=== PATIENT | female | born 1990 | race Hispanic/Latino ===

== ENCOUNTER → 2022-03-19 | Outpatient (CLI) | payer OTHER ==
[~2022-03-19] MED LIST: IOHEXOL 350 MG/ML 100ML INFUS..BTL IV ONE
== END | disposition home or self-care (01) ==
LOC: RAH 08:42
PROVIDERS: ATTEND Internal Medicine Cardiovascular Disease
DX: J98.11 Atelectasis (principal); R91.8 Other nonspecific abnormal finding of lung field; I51.7 Cardiomegaly; I48.0 Paroxysmal atrial fibrillation; I37.1 Nonrheumatic pulmonary valve insufficiency; I26.99 Other pulmonary embolism without acute cor pulmonale; M47.815 Spondylosis without myelopathy or radiculopathy, thoracolumbar region
CPT/HCPCS: 71270; Q9967; 71275

== ENCOUNTER 2024-03-07 20:33 | Emergency (ER) | payer OTHER ==
[~2024-03-07] VITALS: Ht 154.9 cm; Wt 122.0 kg
[2024-03-07 21:08] LABS: BASOPHILS # (AUTO) 0.02 K/uL (0.00-0.20); BASOPHILS % (AUTO) 0.2 % (0.0-5.0); EOSINOPHILS # (AUTO) 0.28 K/uL (0.00-0.70); EOSINOPHILS % (AUTO) 2.9 % (0.0-8.0); HEMATOCRIT 38.8 % (36-48); IMMATURE GRANULOCYTE ABSOLUTE 0.04 K/uL (0-1); LYMPHOCYTES # (AUTO) 3.3 K/uL (1.0-4.8); LYMPHOCYTES % (AUTO) 33.4 % (21.0-51.0); MEAN CORPUSCULAR HEMOGLOBIN 25.3 pg (27.0-33.0); MONOCYTES # (AUTO) 0.6 K/uL (0.1-1.0); MONOCYTES % (AUTO) 6.4 % (3.0-13.0); NEUTROPHILS # (AUTO) 5.5 K/uL (1.8-7.7); NEUTROPHILS % (AUTO) 56.7 % (40.0-77.0); PLATELET COUNT (AUTO) 321 K/uL (130-400); RED BLOOD CELL COUNT(AUTO) 4.91 MIL/uL (4.00-5.50); RED CELL DISTRIBUTION WIDTH 14.6 % (11.0-15.5); WHITE BLOOD COUNT (AUTO) 9.7 K/uL (4.8-10.8)
[2024-03-07 21:15] LABS: CREATININE 0.6 mg/dL (0.5-1.0); POTASSIUM 4.1 mmol/L (3.5-5.1)
[2024-03-07 21:27] LABS: MAGNESIUM 1.9 mg/dL (1.80-2.40)
--- NOTE | 2024-03-07 21:32 | HMCIMG ---
CHEST 1VW CLINICAL HISTORY: CHEST PAIN COMPARISON: CT scan 03/19/2022 TECHNIQUE: Single view of the chest was obtained. FINDINGS: The right lung is clear. Again demonstrated is left hemithorax volume loss with mediastinal deviation right to left and underlying likely atelectasis and scarring at the left lung. The cardiac size is unremarkable. The bony structures are within normal limits. IMPRESSION: No acute cardiopulmonary process identified.
[2024-03-07 21:35] LABS: B-TYPE NATRIURETIC PEPTIDE 5 pg/mL (0-100)
[2024-03-07 22:34] LABS: APPEARANCE,URINE CLEAR (CLEAR); BILIRUBIN,URINE NEGATIVE (NEGATIVE); COLOR,URINE YELLOW (YELLOW); GLUCOSE, URINE (UA) NEGATIVE (NEGATIVE); KETONES,URINE NEGATIVE (NEGATIVE); LEUKOCYTE ESTERASE ,URINE NEGATIVE Leu/uL (NEGATIVE); NITRATE,URINE NEGATIVE (NEGATIVE); OCCULT BLOOD,URINE NEGATIVE (NEGATIVE); PH,URINE 5.5 (5.0-8.0); PROTEIN,URINE NEGATIVE (NEGATIVE); UROBILINOGEN,URINE 0.2 mg/dL (0.2-1.0)
[2024-03-07 22:37] LABS: ADD UA MICROSCOPIC NO
[2024-03-07 22:40] VITALS: BP 148/76; PULSE 83; RESP 18; TEMP 98.4; O2SAT 98
--- NOTE | 2024-03-07 23:02 | ERN ---
General Chief Complaint: Chest Pain Stated Complaint: CHEST PAIN Time Seen by MD: 20:41 Time Seen by Midlevel: 20:41 Source: patient History of Present Illness Initial Comments Patient is a 34-year-old female with a past medical history of atrial fibrillation, hypertension and a left-sided collapsed lung presenting to the emergency department with chest pain that started at 5:00 p.m. today. 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 She specifically denies any shortness of breath, nausea, vomiting, or any other symptoms at this time. Allergies: Coded Allergies: No Known Drug Allergies (Verified Allergy, 12/02/12) Past Medical History Past Medical History: A-Fib, Hypertension, Other Medical History Other: HAS ONLY RT LUNG Past Surgical History: None ROS Dictation CONSTITUTIONAL: Negative except for HPI HEAD/FACE: Negative except for HPI EENT: Negative except for HPI RESPIRATORY: Negative except for HPI GASTROINTESTINAL/ABDOMINAL: Negative except for HPI GENITOURINARY: Negative except for HPI MUSCULOSKELETAL: Negative except for HPI INTEGUMENTARY: Negative except for HPI NEUROLOGICAL/PSYCH: Negative except for HPI HEMATOLOGIC/LYMPHATIC: Negative except for HPI All Systems Negative, Except as noted above. 13 point review of systems assessed and all negative except for above. Physical Exam Physical Exam Dictation Vital Signs reviewed General Appearance: Alert, oriented x 3, no acute distress, well developed, nourished. Head and Face: non-traumatic. Eyes: PERRL, pink conjunctivas, eyelid no trauma, anterior chamber with arcus senilis. Ears: Pinnas intact and no signs of trauma or erythema ear canals clear and no discharge TM no erythema Nose: No discharge, no bleeding. Oropharynx: Mouth normal, tongue pink, pharynx clear,no erythema, tonsils no exudates, no abscesses noted, mucous membrane moist Neck: Supple, non-tender, no thyromegaly, no masses, no JVD, no bruits Breast:Deferred Chest:No tenderness, no crepitus, no paradoxical movement, no retractions Lungs:Clear, well-ventilated, symmetric, no rales, no wheezing, no rhonchi, no stridor, good breath sounds bilaterally Heart: Regular rate, regular rhythm, no murmur, no gallops Vascular: no peripheral edema, Abdomen: Soft, positive bowel sounds, nondistended, no guarding, nontender, no rebound, no masses no hepatomegaly, no splenomegaly, no Carrasco's sign, no hernias. Rectal: Deferred Genital: Deferred Neurological: Normal speech, motor function intact, sensory function intact Musculoskeletal: Neck nontender, full range of motion, back nontender, full range of motion, Extremities: nontender, full range of motion Skin: Color pink, dry, no turgor, no rash, no lacerations, no abrasions, no contusions. Lymphatic: Deferred Results Laboratory and Microbiology Lab and Micro Result Laboratory Tests Test 03/07/24 20:57 03/07/24 22:19 White Blood Count 9.7 K/uL (4.8-10.8) Red Blood Count 4.91 MIL/uL (4.00-5.50) Hemoglobin 12.4 g/dL (12.0-16.0) Hematocrit 38.8 % (36-48) Mean Corpuscular Volume 79.0 fL (79-99) Mean Corpuscular Hemoglobin 25.3 pg (27.0-33.0) L Mean Corpuscular Hemoglobin Concent 32.0 g/dL (32.0-36.0) Red Cell Distribution Width 14.6 % (11.0-15.5) Platelet Count 321 K/uL (130-400) Mean Platelet Volume 10.4 fL (7.5-10.5) Immature Granulocyte % (Auto) 0.4 % (0-1) Neutrophils (%) (Auto) 56.7 % (40.0-77.0) Lymphocytes (%) (Auto) 33.4 % (21.0-51.0) Monocytes (%) (Auto) 6.4 % (3.0-13.0) Eosinophils (%) (Auto) 2.9 % (0.0-8.0) Basophils (%) (Auto) 0.2 % (0.0-5.0) Neutrophils # (Auto) 5.5 K/uL (1.8-7.7) Lymphocytes # (Auto) 3.3 K/uL (1.0-4.8) Monocytes # (Auto) 0.6 K/uL (0.1-1.0) Eosinophils # (Auto) 0.28 K/uL (0.00-0.70) Basophils # (Auto) 0.02 K/uL (0.00-0.20) Absolute Immature Granulocyte (auto 0.04 K/uL (0-1) Nucleated Red Blood Cells 0.0 % (0.0-0.19) Sodium Level 141 mmol/L (136-145) Potassium Level 4.1 mmol/L (3.5-5.1) Chloride Level 105 mmol/L (101-111) Carbon Dioxide Level 27 mmol/L (21-32) Blood Urea Nitrogen 10 mg/dL (7-18) Creatinine 0.6 mg/dL (0.5-1.0) Glomerular Filtration Rate Calc 121 mL/min (>90) Random Glucose 104 mg/dL (70-105) Total Calcium 9.3 mg/dL (8.5-10.1) Magnesium Level 1.90 mg/dL (1.80-2.40) Total Creatine Kinase 101 U/L (21-232) Troponin I High Sensitivity 7 ng/L (4-50) B-Type Natriuretic Peptide 5 pg/mL (0-100) Serum Test, Qualitative NEGATIVE (NEGATIVE) Urine Color YELLOW (YELLOW) Urine Appearance CLEAR (CLEAR) Urine pH 5.5 (5.0-8.0) Urine Specific [place] 1.033 (1.001-1.031) Urine Protein NEGATIVE mg/dL (NEGATIVE) Urine Glucose (UA) NEGATIVE mg/dL (NEGATIVE) Urine Ketones NEGATIVE mg/dL (NEGATIVE) Urine Occult Blood NEGATIVE (NEGATIVE) Urine Nitrate NEGATIVE (NEGATIVE) Urine Bilirubin NEGATIVE mg/dL (NEGATIVE) Urine Urobilinogen 0.2 mg/dL (0.2-1.0) Urine Leukocyte Esterase NEGATIVE Micheline/uL Labs Reviewed?: Yes MDM MDM: Patient is a 34-year-old female with a past medical history of atrial fibrillation, hypertension and a left-sided collapsed lung presenting to the emergency department with chest pain that started at 5:00 p.m. today. 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 She specifically denies any shortness of breath, nausea, vomiting, or any other symptoms at this time. On physical examination patient is in no acute respiratory distress. Initial vital signs are stable. Breath sounds are decreased in the left lung however patient states she has a history of a collapsed lung and has lived like this her entire life. She states she only has her right lung. Full cardiac workup was initiated. Her CBC shows no leukocytosis. Her chemistries unremarkable. Her cardiac enzymes are negative. BNP is normal. Her chest x-ray does show atelectasis with tracheal deviation to the left side which is unchanged from previous x-ray. Lab and imaging were discussed with the patient. She was informed of her negative cardiac enzymes and she states that since everything is normal she would like to be discharged home. I did offer admission for observation and management patient refused. She was an appointment with her hollock maker tomorrow where they are going to place a Holter monitor. Patient was advised to keep appointment with Cardiology and return to the ER if she develops any new or worsening symptoms Differential diagnosis: ACS, pneumonia, pneumothorax There are no social concerns with this patient. Prescription drug management Prescriptions will include: None Medical management and examination interpretation discussions were had by me with other qualified healthcare professionals as indicated for the patient's care. ED Course Orders Procedure Category Date Status Time 12 Lead Ekg Tracing- EKG 03/07/24 Logged Technical 20:41 B-Type Natriuretic LAB 03/07/24 Complete Peptide 20:41 Basic Metabolic Panel LAB 03/07/24 Complete 20:41 Cbc With Differential LAB 03/07/24 Complete 20:41 Creatine Kinase, Total LAB 03/07/24 Complete 20:41 Magnesium LAB 03/07/24 Complete 20:41 Testing, LAB 03/07/24 Complete Serum Hcg 20:41 Urinalysis Profile LAB 03/07/24 Complete 20:41 Troponin I High LAB 03/07/24 Complete Sensitivity 20:41 Chest 1vw RAD 03/07/24 Resulted 20:41 Vital Signs Date Time Temp Pulse Resp B/P (MAP) Pulse Ox O2 Delivery O2 Flow Rate FiO2 03/07/24 22:40 98.4 83 18 148/76 98 Room Air* 0 21 03/07/24 20:38 98.6 82 20 184/99 97 Room Air [place] [address] [address] IMAGING REPORT Signed PATIENT: SOPHIA JEAN MR#: [id number] : 1990 SEX: F AGE: 34 LOCATION: EDH ORDER 42 STATUS: REG ER REPORT#: [id number] SERVICE 40 REASON: CHEST PAIN ORDERING PHYSICIAN: BASIA VALENZUELA PROCEDURE: CXR1VW - CHEST 1VW CHEST 1VW CLINICAL HISTORY: CHEST PAIN COMPARISON: CT scan 03/19/2022 TECHNIQUE: Single view of the chest was obtained. FINDINGS: The right lung is clear. Again demonstrated is left hemithorax volume loss with mediastinal deviation right to left and underlying likely atelectasis and scarring at the left lung. The cardiac size is unremarkable. The bony structures are within normal limits. IMPRESSION: No acute cardiopulmonary process identified. DICTATED BY: CAMILLE SALGUERO DO DATE: 03/07/242123 ELECTRONICALLY SIGNED BY: CAMILLE SALGUERO DO DATE: 03/07/242131 HEART Score Response (Comments) Value History: Low suspicion (0) 0 EKG: Normal 0 Age: < 45yrs (0) 0 Risk Factors: 1-2 risk factors (+1) 1 Initial Troponin: Normal limit (0) 0 HEART Score Risk: Low Risk for MACE (1-3) Total 1 DX & DISP Disposition: Discharge Departure Impression: Primary Impression: Non-cardiac chest pain Condition: Stable Additional Instructions: Your blood work today is unremarkable. Your cardiac enzymes are negative. Your EKG does not show any evidence of a heart attack. Your chest x-ray is stable. Please follow up with your hollock maker tomorrow as scheduled. Return to the ER for any new or worsening symptoms Referrals: NANDO ASHBY MD (PCP) Time of Disposition: 23:01 I have reviewed the case, and I agree with, Diagnosis and Plan I performed the substantive portion of the visit. I have reviewed and personally made and approve the management plan that is documented in the note by myself or the MAR. I acknowledge for responsibility for the patient's management plan. BASIA VALENZUELA Mar 07, 2024 23:02
--- NOTE | 2024-03-08 06:09 | EKG ---
[facility] Test Date: 2024-03-07 Test Time: 20:45:10 Pat Name: SOPHIA JEAN Department: [facility] Room: Gender: F Email Administrator: [id number] : 1990 Requested By: BASIA VALENZUELA Order Number: [id number] Reading MD: Michaela Mckeon Measurements Intervals [place] Rate: 79 P: 49 HI: 172 QRS: 29 QRSD: 104 T: 21 QT: 387 QTc: 444 Interpretive Statements Sinus rhythm No previous ECG available for comparison Electronically Signed On 03-08-2024 10:17:38 [employer] by Michaela Mckeon Please click the below link to view image of tracing.
== END 2024-03-07 23:08 | disposition home or self-care (01) ==
LOC: EDH 20:33
DX: R07.89 Other chest pain (principal); I48.91 Unspecified atrial fibrillation; I10 Essential (primary) hypertension
CPT/HCPCS: 36415; 71045; 80048; 81003; 82550; 83735; 83880; 84484; 84703; 85025; 93005; 99285

== ENCOUNTER 2024-11-25 12:44 | Emergency (ER) | payer BC, OTHER ==
[~2024-11-25] VITALS: Ht 152.4 cm; Wt 110.2 kg
[2024-11-25 12:47] VITALS: TEMP 98.2
[2024-11-25 13:34] LABS: IMMATURE GRANULOCYTE ABSOLUTE 0.02 K/uL (0-1); NUCLEATED RED BLOOD CELLS 0.0 % (0.0-0.19); PLATELET COUNT (AUTO) 360 K/uL (130-400); RED BLOOD CELL COUNT(AUTO) 4.74 MIL/uL (4.00-5.50); RED CELL DISTRIBUTION WIDTH 14.6 % (11.0-15.5); WHITE BLOOD COUNT (AUTO) 8.7 K/uL (4.8-10.8)
[2024-11-25 13:47] LABS: CREATININE 0.9 mg/dL (0.5-1.0); GLOMERULAR FILTR. RATE CALC 86.0 mL/min (>90); GLUCOSE,RANDOM 100.0 mg/dL (70-105); SODIUM SERUM 140.0 mmol/L (136-145); UREA NITROGEN, BLOOD 6.0 mg/dL (7-18)
--- NOTE | 2024-11-25 14:31 | NUR ---
PENDING TEST RESULTS FOR CT EXAM
--- NOTE | 2024-11-25 14:32 | HMCIMG ---
EXAM: CR Chest, 2 View. CLINICAL HISTORY: sob COMPARISON: None provided. FINDINGS: Slight interval improvement in aeration of the left upper lung compared with the prior exam. Marked opacity involving the majority of the left lung. Mild right to left shift of midline structures/partial loss of the left lung volume. The right lung remains clear. MEDIASTINUM: Cardiac size and mediastinal contours within normal limits. BONES: No acute osseous abnormality. IMPRESSION: 1. Marked opacity involving majority of left lung with mild right to left shift of midline structures. 2. Slight interval improvement in aeration of left upper lung compared to prior exam. 3. Clear right lung. /[place]
--- NOTE | 2024-11-25 16:02 | HMCIMG ---
EXAM: CT Chest Without IV contrast. CLINICAL HISTORY: back pain TECHNIQUE: Axial computed tomography images of the chest without intravenous contrast. COMPARISON: None provided. FINDINGS: LUNGS: Reticular opacities and airspace opacities as well as bronchiectasis throughout the left upper and left lower lung. Marked loss of the left lung volume. The right lung is clear Mild to moderate left and left lower lung honeycombing. Leftward shift of midline structures PLEURAL SPACES: No evidence of pneumothorax. No pleural effusion. HEART: No cardiomegaly. No significant pericardial effusion. LYMPH NODES: No lymphadenopathy is evident. UPPER ABDOMEN: The upper abdominal solid organs are unremarkable. BONES: No acute osseous abnormality. IMPRESSION: 1. Left lung fibrosis with volume loss and honeycombing, consistent with end-stage interstitial lung disease. 2. Leftward mediastinal shift. 3. No acute pulmonary findings. /[place]
[2024-11-25 16:20] VITALS: BP 138/75; PULSE 87; RESP 20; O2SAT 97
--- NOTE | 2024-11-25 16:33 | ERN ---
ED Note History of Present Illness Stated Complaint: BACK PAIN Chief Complaint: Back Injury Time Seen by MD: 12:48 Time Seen by Midlevel: 12:50 Dictation: 34-year-old female coming in with complaints of right back pain. Patient states she has a history of left lung disease and was concerned since she only has a right lung functioning. Patient also states she does has a history of herniated disc. Patient states she just came to make sure it was not related to her lung. Patient denies having any fever, nausea vomiting, chest pain or chest discomfort. Denies any trauma. Allergies: Coded Allergies: No Known Drug Allergies (Verified Allergy, 12/02/12) Past Medical History Past Medical History: A-Fib, Hypertension, Other Additional Past Medical Hx: HAS ONLY RT LUNG Surgical History: None Review of System Dictation Constitutional: Negative for fever,chills, and weight loss Eyes: Negative for injury, pain,redness, and discharge ENT: Negative for injury,pain or swelling Cardiovascular: Negative for chest pain, palpitations, and edema Respiratory: Negative for shortness of breath, cough, and wheezing, Abdomen/GI: Negative for abdominal pain, nausea, vomiting, diarrhea, and constipation Back: Negative for injury and pain : Negative for injury, bleeding and discharge MS/Extremity: Negative for injury and deformity, right upper back pain Skin: Negative for rash, and discoloration Neuro: Negative for headache, weakness, numbness, tingling, and seizure Psych: Negative for suicide ideation, homicidal ideation, and hallucinations Review of Systems: was completed Initial Vital Sign VS Vital Signs Date Time Temp Pulse Resp B/P (MAP) Pulse Ox O2 Delivery O2 Flow Rate FiO2 11/25/24 12:47 98.2 93 18 170/87 97 11/25/24 13:37 Room Air* 0 21 Physical Exam Dictation General: awake, alert, NAD Head/Face: Normocephalic, atraumatic Eyes: PERRL, EOMI, vision at baseline ENT: oral cavity clear, TMs clear, no signs of infection Neck: Trachea midline, supple, no nuchal rigidity Cardiovascular: RRR, normal S1/S2, No MRGs, no JVD Respiratory: CTAB, no respiratory distress, No rales or wheezes, diminished lung [place] on the left Abdomen: Soft, non-tender, non-distended, normal bowel sounds, no guarding or rebound. Skin: Warm, dry, normal turgor, no rash MS/Extremity: Pulses equal, no cyanosis, neurovascular intact, FROM Neuro: COAx4, GCS 15, strength 5/5, CN 2-12 intact, normal cerebellar exam, normal gait, Psych: Normal behavior, mood, and affect normal Results (Laboratory/Radiology) Laboratory/Radiology Laboratory Tests Test 11/25/24 13:19 White Blood Count 8.7 K/uL (4.8-10.8) Red Blood Count 4.74 MIL/uL (4.00-5.50) Hemoglobin 12.3 g/dL (12.0-16.0) Hematocrit 37.9 % (36-48) Mean Corpuscular Volume 80.0 fL (79-99) Mean Corpuscular Hemoglobin 25.9 pg (27.0-33.0) L Mean Corpuscular Hemoglobin Concent 32.5 g/dL (32.0-36.0) Red Cell Distribution Width 14.6 % (11.0-15.5) Platelet Count 360 K/uL (130-400) Mean Platelet Volume 9.3 fL (7.5-10.5) Immature Granulocyte % (Auto) 0.2 % (0-1) Neutrophils (%) (Auto) 65.5 % (40.0-77.0) Lymphocytes (%) (Auto) 24.9 % (21.0-51.0) Monocytes (%) (Auto) 7.0 % (3.0-13.0) Eosinophils (%) (Auto) 2.2 % (0.0-8.0) Basophils (%) (Auto) 0.2 % (0.0-5.0) Neutrophils # (Auto) 5.7 K/uL (1.8-7.7) Lymphocytes # (Auto) 2.2 K/uL (1.0-4.8) Monocytes # (Auto) 0.6 K/uL (0.1-1.0) Eosinophils # (Auto) 0.19 K/uL (0.00-0.70) Basophils # (Auto) 0.02 K/uL (0.00-0.20) Absolute Immature Granulocyte (auto 0.02 K/uL (0-1) Nucleated Red Blood Cells 0.0 % (0.0-0.19) Sodium Level 140 mmol/L (136-145) Potassium Level 3.8 mmol/L (3.5-5.1) Chloride Level 104 mmol/L (101-111) Carbon Dioxide Level 27 mmol/L (21-32) Blood Urea Nitrogen 6 mg/dL (7-18) L Creatinine 0.9 mg/dL (0.5-1.0) Glomerular Filtration Rate Calc 86 mL/min (>90) Random Glucose 100 mg/dL (70-105) Total Calcium 8.3 mg/dL (8.5-10.1) L Serum Test, Qualitative NEGATIVE (NEGATIVE) Labs Reviewed?: Yes X-RAY Comment: [facility] [address] [place] [id number] IMAGING REPORT Signed PATIENT: SOPHIA JEAN MR#: [id number] : 1990 SEX: F AGE: 34 LOCATION: EDH ORDER 18 STATUS: REG REPORT#: [id number] SERVICE 17 REASON: sob ORDERING PHYSICIAN: IFEANYI MORRISSEY NP PROCEDURE: CXR2VW - CHEST 2VWS EXAM: CR Chest, 2 View. CLINICAL HISTORY: sob COMPARISON: None provided. FINDINGS: Slight interval improvement in aeration of the left upper lung compared with the prior exam. Marked opacity involving the majority of the left lung. Mild right to left shift of midline structures/partial loss of the left lung volume. The right lung remains clear. MEDIASTINUM: Cardiac size and mediastinal contours within normal limits. BONES: No acute osseous abnormality. IMPRESSION: 1. Marked opacity involving majority of left lung with mild right to left shift of midline structures. 2. Slight interval improvement in aeration of left upper lung compared to prior exam. 3. Clear right lung. /[place] DICTATED BY: JIM MARTINES MD DATE: 11/25/241530 ELECTRONICALLY SIGNED BY: JIM MARTINES MD DATE: 11/25/241530 CT Scan Comment: [facility] [address] [place] [id number] IMAGING REPORT Signed PATIENT: SOPHIA JEAN MR#: [id number] : 1990 SEX: F AGE: 34 LOCATION: EDH ORDER 20 STATUS: REG ER REPORT#: [id number] SERVICE 19 REASON: back pain ORDERING PHYSICIAN: IFEANYI MORRISSEY NP PROCEDURE: CHEST WO - CT CHEST W/O CONTRAST EXAM: CT Chest Without IV contrast. CLINICAL HISTORY: back pain TECHNIQUE: Axial computed tomography images of the chest without intravenous contrast. COMPARISON: None provided. FINDINGS: LUNGS: Reticular opacities and airspace opacities as well as bronchiectasis throughout the left upper and left lower lung. Marked loss of the left lung volume. The right lung is clear Mild to moderate left and left lower lung honeycombing. Leftward shift of midline structures PLEURAL SPACES: No evidence of pneumothorax. No pleural effusion. HEART: No cardiomegaly. No significant pericardial effusion. LYMPH NODES: No lymphadenopathy is evident. UPPER ABDOMEN: The upper abdominal solid organs are unremarkable. BONES: No acute osseous abnormality. IMPRESSION: 1. Left lung fibrosis with volume loss and honeycombing, consistent with end-stage interstitial lung disease. 2. Leftward mediastinal shift. 3. No acute pulmonary findings. /[place] DICTATED BY: JIM MARTINES MD DATE: 11/25/241701 ELECTRONICALLY SIGNED BY: JIM MARTINES MD DATE: 11/25/241701 ED Course ED Course Orders Procedure Category Date Status Time Cbc With Differential LAB 11/25/24 Complete 13:18 Basic Metabolic Panel LAB 11/25/24 Complete 13:18 Chest 2vws RAD 11/25/24 Resulted 13:18 Ketorolac PHA 11/25/24 Complete Tromethamine 15mg/Ml 13:30 Ct Chest W/O Contrast CT 11/25/24 Resulted 14:20 Testing, LAB 11/25/24 Complete Serum Hcg 14:44 Current Medications Medications (Trade) Dose Ordered Sig/Susie Route PRN Reason Start Time Stop Time Status Last Admin Dose Admin Ketorolac Tromethamine (toRADol) 15 mg ONCE ONCE IV 11/25/24 13:30 11/25/24 13:31 DC 11/25/24 14:05 Vital Signs Date Time Temp Pulse Resp B/P (MAP) Pulse Ox O2 Delivery O2 Flow Rate FiO2 11/25/24 13:37 86 20 146/80 97 Room Air* 0 21 11/25/24 12:47 98.2 93 18 170/87 97 Medical Decision Making MDM MDM: 34-year-old female coming in with complaints of right back pain. Patient states she has a history of left lung disease and was concerned since she only has a right lung functioning. Patient also states she does has a history of herniated disc. Patient states she just came to make sure it was not related to her lung. Patient denies having any fever, nausea vomiting, chest pain or chest discomfort. Denies any trauma.CBC shows no leukocytosis, no anemia, no thrombocytopenia. Chemistries unremarkable. Chest x-ray shows marked opacity involving majority of the foot along with a mild right to left shift of midline structures, slight interval improvement in aeration in the left upper lung compared to prior exam. Chest CT shows left lung fibrosis with volume loss county, consistent with a end-stage does do not disease, no acute pulmonary findings. Clear right lung. Recommend in more pain medication muscle relaxers while she is in the emergency room. Patient refused states she has muscle relaxers at home no rather go home. Patient states she would just wanted to make sure it was not related to her right lung. Differential diagnosis: Pneumothorax, pneumonia, muscle spasm Rationale: Tests considered and ordered secondary to shared decision making include: Previous outside records reviewed: Old ER visits. Risk of complication and/or morbidity or mortality of patient management: None Medications-Per medication reconciliation Need for hospitalization: Patient does not meet criteria for hospitalization. Need for emergency major/minor surgery: No There are no social concerns with this patient. Prescription drug management Prescriptions will include symptomatic care Patient's prior external medical records from other ER visits were reviewed by me as indicated. Prior testing and results from previous visits were reviewed. Prior tests were taken into account with medical decision making and resource utilization, independent historian/historians were used to obtain complete medical history. I independently interpreted the test that were performed, results were reviewed by me and considered findings on radiology if ordered. Medical management and examination interpretation discussions were had by me with other qualified healthcare professionals as indicated for the patient's care. DX & DISP Disposition: Discharge Departure Impression: Primary Impression: Back pain Additional Impression: Interstitial lung disease Condition: Stable Additional Instructions: You can take your muscle relaxers at home and add Tylenol or Motrin as needed. Follow up with your primary doctor in 1-2 days. Return to the hospital if you have any worsening pain, shortness a breath, nausea vomiting. Referrals: NANDO ASHBY MD (PCP) Time of Disposition: 16:29 I have reviewed the case, Diagnosis and Plan IFEANYI MORRISSEY NP Nov 25, 2024 16:33
== END 2024-11-25 16:41 | disposition home or self-care (01) ==
LOC: EDH 12:44
DX: M54.9 Dorsalgia, unspecified (principal); J84.9 Interstitial pulmonary disease, unspecified; I10 Essential (primary) hypertension; I48.91 Unspecified atrial fibrillation
CPT/HCPCS: 99284; 96374; 71250; 71046; 80048; 84703; 85025; 36415; J1885

== ENCOUNTER 2025-01-09 18:08 | Emergency (ER) | payer OTHER, BC ==
[~2025-01-09] VITALS: Ht 154.9 cm; Wt 109.9 kg
[2025-01-09] MEDS: CYCLOBENZAPRINE HCL 10 MG TABLET PO ONE (20:25)
--- NOTE | 2025-01-09 20:29 | NUR ---
CT ON HOLD AT THIS TIME, PT STATES SHE WANTS TO WAIT FOR TEST RESULTS, URINE TEST IS PENDING.
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
[2025-01-09 22:00] VITALS: BP 141/78; PULSE 72; RESP 18; TEMP 98.1; O2SAT 98
[2025-01-09] MEDS ORDERED: CYCL10TA16 PO (22:15)
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
== END 2025-01-09 22:51 | disposition home or self-care (01) ==
LOC: EDH 18:08
DX: S16.1XXA Strain of muscle, fascia and tendon at neck level, initial encounter (principal); S39.012A Strain of muscle, fascia and tendon of lower back, initial encounter; I10 Essential (primary) hypertension; V49.40XA Driver injured in collision with unspecified motor vehicles in traffic accident, initial encounter; Y93.89 Activity, other specified; Y92.89 Other specified places as the place of occurrence of the external cause; Y99.8 Other external cause status
CPT/HCPCS: 99285; 72125; 81025; 72100; 72072; 96372; J1885